=== PATIENT | male | born 1950 | race Caucasian/White ===

== ENCOUNTER 2021-01-21 12:05 | Emergency (ER) | payer OTHER ==
[~2021-01-21] VITALS: Ht 177.8 cm; Wt 109.3 kg
[2021-01-21 12:30] VITALS: BP_SYST 149
[2021-01-21 14:42] LABS: BASOPHILS # (AUTO) 0.1 K/uL (0.0-0.2); BASOPHILS % (AUTO) 0.6 % (0.0-2.0); EOSINOPHILS # (AUTO) 0.2 K/uL (0.0-0.4); EOSINOPHILS % (AUTO) 1.9 % (0.0-4.0); HEMATOCRIT 29.5 % (36-54); HEMOGLOBIN 10.4 g/dL (14.0-18.0); LYMPHOCYTES # (AUTO) 1.2 K/uL (1.0-5.5); LYMPHOCYTES % (AUTO) 14.6 % (20.5-51.5); MEAN CORPUSCULAR HEMOGLOBIN 32 pg (27-31); MEAN CORPUSCULAR HGB CONC 35 % (32-36); MEAN CORPUSCULAR VOLUME 92 fL (79.0-98.0); MONOCYTES # (AUTO) 1.2 K/uL (0.0-1.0); MONOCYTES % (AUTO) 14.2 % (1.7-9.3); NEUTROPHILS # (AUTO) 5.6 K/uL (1.8-7.7); NEUTROPHILS % (AUTO) 68.7 % (40.0-70.0); PLATELET COUNT (AUTO) 432 K/uL (130-430); RED BLOOD CELL COUNT(AUTO) 3.21 MIL/uL (4.2-6.2); RED CELL DISTRIBUTION WIDTH 13.2 % (9.0-15.0); WHITE BLOOD COUNT (AUTO) 8.2 K/uL (4.8-10.8)
[2021-01-21 14:52] LABS: ANION GAP 8 (5-15); CALCIUM 9.2 mg/dL (8.4-11.0); CHLORIDE 98 mmol/L (98-107); CREATININE 0.94 mg/dL (0.55-1.30); GLUCOSE 108 mg/dL (70-99); POTASSIUM 3.3 mmol/L (3.5-5.1); SODIUM SERUM 134 mmol/L (136-145); UREA NITROGEN, BLOOD 13 mg/dL (8-21)
[2021-01-21 14:56] LABS: INR 0.9 (0.80-1.20); PROTHROMBIN TIME 9.7 SECS (9.5-12.5)
[2021-01-21 14:58] LABS: ALANINE AMINOTRANSFERASE 25 U/L (12-78); ALBUMIN 3.3 g/dL (3.4-4.8); ASPARTATE AMINOTRANSFERASE 21 U/L (10-37)
[2021-01-21] MEDS ORDERED: HYDROcodone/ACETAMIN 7.5-325 MG TAB PO ONE (15:00)
[2021-01-21 17:18] VITALS: BP_SYST 137
== END 2021-01-21 17:18 | disposition short-term general hospital (02) ==
LOC: SED 12:05
DX: T81.40XA Infection following a procedure, unspecified, initial encounter (principal); D64.9 Anemia, unspecified; Z20.822 Contact with and (suspected) exposure to COVID-19
CPT/HCPCS: 36415; 80053; 83605; 85025; 85610-TC; 85730-TC; 87040-TC; 93971; 99284